=== PATIENT | female | born 1940 | race Caucasian/White ===

== ENCOUNTER 2024-04-16 14:27 | Emergency (ER) | payer OTHER ==
[2024-04-16 15:07] VITALS: BP 123/62; PULSE 71; RESP 17; TEMP 97.9; BMI 21.1
[2024-04-16] MEDS ORDERED: ACETAMINOPHEN 500 MG TABLET (FP) ONE (15:20)
[2024-04-16] MEDS: ACETAMINOPHEN 500 MG TABLET (FP) PO ONE (15:26)
== END 2024-04-16 17:57 | disposition home or self-care (01) ==
LOC: JER 14:27
DX: S09.90XA Unspecified injury of head, initial encounter (principal); W01.198A Fall on same level from slipping, tripping and stumbling with subsequent striking against other object, initial encounter
CPT/HCPCS: 70450-TC; 72125-TC; 72170-TC-FY; 73090-TC-RT-FY; 73110-TC-RT-FY; 73130-TC-RT-FY; 73562-TC-RT-FY; 99283-25